=== PATIENT | male | born 1990 | race Caucasian/White ===

== ENCOUNTER 2019-01-29 04:01 | Observation (INO) ==
[2019-01-29] MEDS ORDERED: ASPIRIN 81 MG TAB.CHEW PO ONE (04:13)
--- NOTE | 2019-01-29 04:17 | ERNOTE ---
Chest Pain/Cardiac HPI Date of Service: 01/29/19 Chief Complaint: Chest Pain Time Seen by Provider: 01/29/19 04:06 Source: patient Immunizations: IMMUNIZATION HX Immunizations Up to Date Yes Allergies/Adverse Reactions: Allergies Penicillins Allergy (Mild, Verified 01/29/19 04:14) Rash/Vomiting Home Medications: HOME MEDICATIONS Levothyroxine Sodium [Synthroid] 150 mcg PO DAILY 01/29/19 [Last Taken Unknown] Meloxicam [Mobic] 15 mg PO DAILY 01/29/19 [Last Taken Unknown] buPROPion HCL [Wellbutrin XL] 300 mg PO DAILY 01/29/19 [Last Taken Unknown] traMADol HCL [Ultram] 50 mg PO DAILY PRN 01/29/19 [Last Taken Unknown] Narrative: This is a 28-year-old male who comes to the emergency department by private vehicle at 4:00 in the morning. He is having left-sided chest pain. The patient reports he went to bed and had no problems. He got woken up from sleep at 340 with a sharp pain which she describes as underneath his chest wall. He is not sure if it is actually in the back by his scapula or if it is "from my heart". The patient denies having any shortness of breath, nausea, diaphoresis, pain in the neck arm or jaw. No numbness or tingling. Has never had pain like this before. He does not have high blood pressure, diabetes, high cholesterol. He does not use tobacco products. He has no family history of early cardiac disease. The patient is an overweight gentleman who says he is been working hard to lose weight recently. He is lost 50 pounds in the last 3 months. He says he is been doing this by engaging in a fair amount of aerobic activity as well as lifting weights. He said he worked out his arms yesterday and thought that maybe he had overworked his muscles. He tried to stretch and that really did not seem to help. Patient does not have any other complaints or symptoms. Nothing makes it worse or better Review of Systems - Review of Systems Constitutional: Present: no symptoms reported EYE: Present: no symptoms reported ENT: Present: no symptoms reported Respiratory: Present: no symptoms reported Cardiology: Present: See HPI, chest pain Gastrointestinal/Abdominal: Present: no symptoms reported Genitourinary: Present: no symptoms reported Musculoskeletal: Present: no symptoms reported Skin: Present: no symptoms reported Neurological: Present: no symptoms reported Endocrine: Present: no symptoms reported Hematologic/Lymphatic: Present: no symptoms reported Psych: Present: no symptoms reported All Other Systems: All systems neg except as marked Medical History (Updated 01/29/19 @ 04:14 by Rachael Reece RN) Anxiety Degenerative disc disease Depression Hypothyroidism Sleep apnea Surgical History: Surgical History (Updated 01/29/19 @ 04:14 by Rachael Reece RN) Status post correction of deviated nasal septum Social History: Preferred Language Yakut Do you have any lutheran or No cultural preference? Smoking Status Never smoker Alcohol Use none Drug Use none No Social History Section defined Physical Exam - Physical Exam General Appearance: Present: wd/wn, alert, no apparent distress Head Exam: Present: normal inspection, no evidence of injury Eye Exam: Normal inspection: bilateral, PERRL: bilateral, EOMI: bilateral Ears, Nose, Throat: Present: normal ENT inspection Neck: Present: normal inspection Respiratory: Present: no respiratory distress, normal breath sounds, chest nontender, lungs clear Cardiovascular/Chest: Present: regular rate, rhythm, no murmur Gastrointestinal/Abdominal: Present: normal bowel sounds, nontender, nondistend ed, soft, other - Obese and protuberant Back Exam: Present: normal inspection, normal range of motion, no CVA tenderness, other - Patient does have some tenderness just to the left of the spine in the mid thoracic area. Palpation says it is a very sharp pain similar to what he was experiencing earlier Extremity Exam: Present: normal inspection, non-tender, normal range of motion, other - Patient does have reproduction of the pain when he puts his arm out to the side and pressure is applied to the upper part. Neurological Exam: Present: alert, oriented, normal mood/affect, no motor/sensory deficits Skin Exam: Present: normal color, warm/dry Lymphatic Exam: Present: no adenopathy Progress - Results and Orders Patient's Lab Results:: I have reviewed the patient's lab results. - Vital Signs Patient's Vital Signs:: I have reviewed the patient's vital signs. Vital Signs: Vital Signs 01/29/19 04:01 Temperature 36.8 C Pulse Rate 74 Respiratory Rate 18 Blood Pressure 156/85 H O2 Sat by Pulse Oximetry 98 - EKG EKG #1 EKG read: Interp. by me EKG Comments: EKG demonstrates sinus rhythm ventricular rate of 64, normal axis, normal intervals, no ST elevation, T waves are normal. - X-Ray X-Ray #1 X-Ray: chest Interpretation: Interp. by me X-ray Comments: No acute cardiopulmonary abnormalities - Progress/Reassessment Chief Complaint: Chest Pain Plan - Plan Plan: This is a 28-year-old gentleman with no risk factors with extremely unusual chest pain. Can get a couple of sets of cardiac enzymes with a quick turnaround, 90 minutes between. His chest pain is really reproducible with palpation in his back. Seems to be muscular. Patient's first troponin was undetectable. Unfortunately the second level is 0.018. I do not know how much this is going up. But it is certainly not down or undetectable still. Therefore the patient is going to need to be kept in observation until he has this another enzyme which is going down. I will order a repeat in 3 hours, and then after that Dr. Farmer will determine what else to do. Patient is comfortable and asymptomatic except with movement of his shoulder and palpation. Departure Clinical Impression: Chest pain - Departure Disposition: Still a patient Condition: Good Referrals: Sheyla Darnell ARNP [Primary Care Provider] -
[2019-01-29 04:27] LABS: Hematocrit 44.3 % (42.0-52.0); Hemoglobin 14.3 gm/dL (13.5-18.0); Mean Cell Volume 99.3 fl (78-100); Mean Corpuscular Hemoglobin 32.1 pg (27-31); Mean Corpuscular Hgb Conc 32.3 g/dl (32-36); Mean Platelet Volume 10.1 fl (8-11.3); Neutrophil # 3.3 K/mm3 (1.3-6.0); Neutrophil % 46.1 % (42-75.0); Platelet Count 256 K/mm3 (150-450); Red Blood Count 4.46 M/mm3 (4.7-6.0); Red Cell Distribution Width 12.3 % (11.5-14.0); White Blood Count 7.1 K/mm3 (4.0-10.5)
[2019-01-29 04:48] LABS: ALT 45 U/L (19-67); AST 37 U/L (0-48); Albumin * 3.5 gm/dl (3.4-5.0); Alkaline Phosphatase * 72 U/L (50-170); Anion Gap 10.6 mmol/L (6.8-13.8); BUN/Creatinine Ratio 16.7 (9.0-21.6); Bilirubin, Total 0.8 mg/dL (0.0-1.1); Blood Urea Nitrogen 16 mg/dL (6-23); Calcium * 8.9 mg/dL (7.9-10.9); Carbon Dioxide 29.3 mmol/L (24-32.6); Chloride 104 mmol/L (97-106); Glucose * 97 mg/dL (70-110); Potassium 3.9 mmol/L (3.4-4.6); Sodium 140 mmol/L (132-142); Total Protein 7.3 gm/dL (6.2-8.2); Troponin I Less than 0.017 ng/mL (0.00-0.10)
[2019-01-29] MEDS ORDERED: traMADol HCL 50 MG TABLET PO PRN (07:20)
[2019-01-29] MEDS ORDERED: LEVOTHYROXINE SODIUM 150 MCG TABLET PO SCH (07:30)
[2019-01-29] MEDS ORDERED: buPROPion HCL 150 MG TAB.SR.24H PO SCH (09:00)
[2019-01-29] MEDS ORDERED: MELOXICAM 15 MG TABLET PO SCH (09:00)
--- NOTE | 2019-01-29 10:20 | HPDIS ---
Chief Complaint - Chief Complaint Date of Service: 01/29/19 Time of Service: 10:10 Chief Complaint: chest pain History of Present Illness: Patient was morning around 3:40 am with left-sided chest pain. This was approximately 7 hours ago. He denied shortness of breath, nausea, dizziness, left arm pain. He said it was hard to determine if the pain is coming from the left side of his chest or his left shoulder blade. The pain is sharp. This is never happened before. It improved after arrival to the ED, and further improved after he was given his home meloxicam. His pain is worse with movement. He also reports significant anxiety and increased stress lately. He has started an exercise regimen and has lost 50 pounds over the last several months. He does not have a history of reflux. Medical History (Updated 01/29/19 @ 06:51 by Vazquez Petty MD) Anxiety Degenerative disc disease Depression Hypothyroidism Sleep apnea Surgical History: Surgical History (Updated 01/29/19 @ 04:14 by Rachael Reece RN) Status post correction of deviated nasal septum Social History: Patient Lives/Resources Home Utilized Occupation [employer] Preferred Language Indonesian Do you have any uatsdin or No cultural preference? Smoking Status Never smoker Have you smoked in the past 12 No months Do you dip or chew tobacco No Alcohol Use none Drug Use none No Social History Section defined Review Of Systems (GEN) - Review of Systems Generalized/Overall Review: Present: Weight loss - Intentional, 50 pounds. Absent: Fever Respiratory: Absent: Cough, Shortness of Breath Cardiac: Present: Chest Pain. Absent: Edema, Syncope Abdominal: Absent: Nausea, Vomiting Genitourinary: Present: No Symptoms Reported Musculoskeletal: Present: Other - Left shoulder blade pain, history of degenerative disc disease Neurological: Present: No Symptoms Reported Skin: Present: No Symptoms Reported Immunizations: IMMUNIZATION HX Immunizations Up to Date Yes Allergies/Adverse Reactions: Allergies Allergy/AdvReac Type Severity Reaction Status Date / Time Penicillins Allergy Mild Rash/Vomiti Verified 01/29/19 08:01 ng Home Medications: HOME MEDICATIONS Levothyroxine Sodium [Synthroid] 150 mcg PO DAILY 01/29/19 [Last Taken Unknown] Meloxicam [Mobic] 15 mg PO DAILY 01/29/19 [Last Taken Unknown] buPROPion HCL [Wellbutrin Xl] 300 mg PO DAILY 01/29/19 [Last Taken Unknown] traMADol HCL [Ultram] 50 mg PO DAILY PRN 01/29/19 [Last Taken Unknown] Exam - Exam Vital Signs: Vital Signs - Last Taken Temp 36.9 C 01/29/19 07:50 Pulse 58 L 01/29/19 08:20 Resp 18 01/29/19 07:50 BP 124/64 01/29/19 07:50 Pulse Ox 95 01/29/19 07:50 Constitutional: Present: Alert, Oriented x3, Cooperative, Well developed, Obese Respiratory: Present: normal breath sounds, no respiratory distress Cardiovascular/Chest: Present: regular rate, rhythm, no murmur, chest tender - Mild left-sided chest tenderness with anterior pressure Abdomen: Present: Normal bowel sounds, soft Extremity: Absent: lower extremity edema Appearance: Present: appropriate appearance Eye contact: Present: cooperative, good eye contact Diagnostic Studies: Abnormal Lab Results 01/29/19 Range/Units 04:25 RBC 4.46 L (4.7-6.0) M/mm3 MCH 32.1 H (27-31) pg Monocytes % 12.2 H (0.0-9) % Laboratory Results WBC 7.1 K/mm3 (4.0-10.5) 01/29/19 04:25 RBC 4.46 M/mm3 (4.7-6.0) L 01/29/19 04:25 Hgb 14.3 gm/dL (13.5-18.0) 01/29/19 04:25 Hct 44.3 % (42.0-52.0) 01/29/19 04:25 MCV 99.3 fl (78-100) 01/29/19 04:25 MCH 32.1 pg (27-31) H 01/29/19 04:25 MCHC 32.3 g/dl (32-36) 01/29/19 04:25 RDW 12.3 % (11.5-14.0) 01/29/19 04:25 Plt Count 256 K/mm3 (150-450) 01/29/19 04:25 MPV 10.1 fl (8-11.3) 01/29/19 04:25 Immature Gran % (Auto) 0.30 % (0.001-0.429) 01/29/19 04:25 Immature Gran # (Auto) 0.02 K/mm3 (0.000-0.0310) 01/29/19 04:25 46.1 % (42-75.0) 01/29/19 04:25 39.4 % (20-51) 01/29/19 04:25 12.2 % (0.0-9) H 01/29/19 04:25 1.7 % (0.0-3.0) 01/29/19 04:25 0.3 % (0.0-1.0) 01/29/19 04:25 Nucleated RBC % 0.0 k/mm3 (0-1) 01/29/19 04:25 3.3 K/mm3 (1.3-6.0) 01/29/19 04:25 2.81 k/mm3 (1.5-3.5) 01/29/19 04:25 0.9 k/mm3 (0.0-1.0) 01/29/19 04:25 0.1 k/mm3 (0.0-0.7) 01/29/19 04:25 Absolute Basophils 0.0 k/mm3 (0.0-0.1) 01/29/19 04:25 Sodium 140 mmol/L (132-142) 01/29/19 04:25 140 mmol/L (130-142) 01/29/19 04:25 Potassium 3.9 mmol/L (3.4-4.6) 01/29/19 04:25 Chloride 104 mmol/L (97-106) 01/29/19 04:25 Carbon Dioxide 29.3 mmol/L (24-32.6) 01/29/19 04:25 10.6 mmol/L (6.8-13.8) 01/29/19 04:25 BUN 16 mg/dL (6-23) 01/29/19 04:25 0.96 mg/dL (0.4-1.4) 01/29/19 04:25 Est GFR (Non-Af Amer) 98 mL/min (60-130) 01/29/19 04:25 16.7 (9.0-21.6) 01/29/19 04:25 97 mg/dL (70-110) 01/29/19 04:25 Calcium 8.9 mg/dL (7.9-10.9) 01/29/19 04:25 Calcium Adj for Albumin 9.0 mg/dL (8.4-10.2) 01/29/19 04:25 0.8 mg/dL (0.0-1.1) 01/29/19 04:25 AST 37 U/L (0-48) 01/29/19 04:25 ALT 45 U/L (19-67) 01/29/19 04:25 72 U/L (50-170) 01/29/19 04:25 Less than 0.017 ng/mL (0.00-0.10) 01/29/19 09:00 7.3 gm/dL (6.2-8.2) 01/29/19 04:25 3.5 gm/dl (3.4-5.0) 01/29/19 04:25 Assessment/Plan - Assessment/Plan (1) Chest pain Assessment: Patient is young, not diabetic, does not smoke. His risk factor is obesity. Using the HEART score for major cardiac events, his score is low, indicating his risk of MACE is 0.9-1.7%. His troponin is not positive, and no signs of ischemia or infarct on EKG. He denies shortness of breath or nausea. His chest pain is reproducible with pressure, and improved with meloxicam, indicating likely musculoskeletal source. Will discharge this afternoon and order an outpatient stress test. Problem: Resolved Qualifiers: Chest pain type: other chest pain Qualified Code(s): R07.89 - Other chest pain; R07.8 - Other chest pain (1) Chest pain Problem: Resolved Description of Stay: Patient is young, not diabetic, does not smoke. His risk factor is obesity. Using the HEART score for major cardiac events, his score is low, indicating his risk of MACE is 0.9-1.7%. His troponin is not positive, and no signs of ischemia or infarct on EKG. He denies shortness of breath or nausea. His chest pain is reproducible with pressure, and improved with meloxicam, indicating likely musculoskeletal source. Will discharge this afternoon and order an outpatient stress test. He also reports significant stress. He is working on developing stress management techniques. Procedures Performed: none Results and Findings: Lab Pending Results 01/29/19 04:25: WBC 7.1, RBC 4.46 L, Hgb 14.3, Hct 44.3, MCV 99.3, MCH 32.1 H, MCHC 32.3, RDW 12.3, Plt Count 256, MPV 10.1, Immature Gran % (Auto) 0.30, Immature Gran # (Auto) 0.02, Neutrophils % 46.1, Lymphocytes % 39.4, Monocytes % 12.2 H, Eosinophils % 1.7, Basophils % 0.3, Nucleated RBC % 0.0, Neutrophils # 3.3, Lymphocytes # 2.81, Monocytes # 0.9, Eosinophils # 0.1, Absolute Basophils 0.0 01/29/19 04:25: Sodium 140, Plasma Sodium 140, Potassium 3.9, Chloride 104, Carbon Dioxide 29.3, Anion Gap 10.6, BUN 16, Creatinine 0.96, Est GFR (Non-Af Amer) 98, BUN/Creatinine Ratio 16.7, Random Glucose 97, Calcium 8.9, Calcium Adj for Albumin 9.0, Total Bilirubin 0.8, AST 37, ALT 45, Alkaline Phosphatase 72, Troponin I Less than 0.017, Total Protein 7.3, Albumin 3.5 01/29/19 06:00: Troponin I 0.018 01/29/19 09:00: Troponin I Less than 0.017 Discharge Location: Home Disposition: Home self-care Condition: Good Discharge Activity: Activity as tolerated Discharge Diet: General/regular food Referrals: Sheyla Darnell ARNP [Primary Care Provider] - One Week Complete Home Medications List: Complete Home Medication List: Levothyroxine Sodium [Synthroid] 150 mcg PO DAILY 01/29/19 Meloxicam [Mobic] 15 mg PO DAILY 01/29/19 buPROPion HCL [Wellbutrin Xl] 300 mg PO DAILY 01/29/19 traMADol HCL [Ultram] 50 mg PO DAILY PRN 01/29/19 Amb Orders for Discharge: Regular Exercise Stress Test Time Frame: 2 Weeks, Location: Respiratory Therapy
[2019-01-29 13:07] VITALS: BP 118/56
== END 2019-01-29 13:14 | disposition home or self-care (01) ==
LOC: ER 04:01 → MS 04:01
PROVIDERS: ADMIT Family Medicine; ATTEND Family Medicine
DX: R07.9 Chest pain, unspecified
CPT/HCPCS: 36415; 71020; 71046; 80053; 84484; 85025; 93005; 99285